=== PATIENT | female | born 1995 | race Caucasian/White ===

== ENCOUNTER → 2024-03-09 10:08 | Outpatient (REF) | payer OTHER, SELFPAY | LOC: PNTC 10:08 | PROVIDERS: ATTENDING PHYSICIAN Student in an Organized Health Care Education/Training Program | DX: O99.320 Drug use complicating pregnancy, unspecified trimester (principal) | CPT/HCPCS: 76805 ==

== ENCOUNTER → 2024-04-05 09:14 | Outpatient (REF) | payer OTHER, SELFPAY | LOC: PNTC 09:14 | PROVIDERS: ATTENDING PHYSICIAN Student in an Organized Health Care Education/Training Program | DX: O99.320 Drug use complicating pregnancy, unspecified trimester (principal) | CPT/HCPCS: 76811 ==

== ENCOUNTER → 2024-05-03 11:54 | Outpatient (REF) | payer OTHER, SELFPAY | LOC: PNTC 11:54 | PROVIDERS: ATTENDING PHYSICIAN Student in an Organized Health Care Education/Training Program | DX: O35.5XX0 Maternal care for (suspected) damage to fetus by drugs, not applicable or unspecified (principal) | CPT/HCPCS: 76816 ==

== ENCOUNTER → 2024-05-31 10:38 | Outpatient (REF) | payer OTHER, SELFPAY | LOC: PNTC 10:38 | PROVIDERS: ATTENDING PHYSICIAN Student in an Organized Health Care Education/Training Program | DX: O99.320 Drug use complicating pregnancy, unspecified trimester (principal) | CPT/HCPCS: 76816 ==

== ENCOUNTER → 2024-06-28 10:36 | Outpatient (REF) | payer OTHER, SELFPAY | LOC: PNTC 10:36 | PROVIDERS: ATTENDING PHYSICIAN Student in an Organized Health Care Education/Training Program | DX: O99.320 Drug use complicating pregnancy, unspecified trimester (principal) | CPT/HCPCS: 76816 ==

== ENCOUNTER → 2024-07-26 10:50 | Outpatient (REF) | payer OTHER, SELFPAY | LOC: PNTC 10:50 | PROVIDERS: ATTENDING PHYSICIAN Student in an Organized Health Care Education/Training Program | DX: O99.320 Drug use complicating pregnancy, unspecified trimester (principal) | CPT/HCPCS: 76816 ==

== ENCOUNTER 2024-08-24 11:48 | Inpatient (IN) | payer OTHER, SELFPAY ==
[2024-08-24 11:58] VITALS: BP 141/74; BMI 35.4
[2024-08-24 13:40] LABS: % Basophils 0.3 % (0-2); % Eosinophils 0.5 % (0-6); % Monocytes 6.1 % (1.7-9.3); % Neutrophils 76.1 % (42.2-75.2); Absolute Eosinophils 0.1 10^3/uL (0-0.7); Absolute Immature Granulocytes 0.1 10^3/uL (0-0.05); Absolute Lymphocytes 1.7 10^3/uL (1.2-3.4); Absolute Monocytes 0.7 10^3/uL (0.1-0.6); Absolute Neutrophils 8.2 10^3/uL (1.4-6.5); Hematocrit 35.4 % (37.0-47.0); Mean Corp Hgb Conc. 33.9 g/dL (33.0-37.0); Mean Corpuscular Hgb 30.4 pg (27.0-31.0); Mean Corpuscular Volume 89.6 fL (81.0-99.0); Mean Platelet Volume 10.5 fL (7.4-10.4); Nucleated Red Blood Cells % 0 %; Platelet Count 219 10^3/uL (130-400); Red Blood Cell Count 3.95 10^6/uL (4.20-5.40); Red Cell Dist. Width 13.9 % (11.5-14.5); White Blood Cell Count 10.8 10^3/uL (4.8-10.8)
[2024-08-24 13:49] LABS: Amphetamines Negative (Negative); Barbiturates Negative (Negative); Benzodiazepines Negative (Negative); Buprenorphine Negative (Negative); Cocaine Negative (Negative); Marijuana Negative (Negative); Methadone Positive (Negative); Methamphetamines Negative (Negative); Opiates Negative (Negative); Phencyclidine Negative (Negative); Tricyclic Antidepressants Negative (Negative)
[2024-08-24 14:08] LABS: Fentanyl, Urine Negative (Negative)
[2024-08-24] MEDS: PITOCIN 30 UNITS/NSS 500 ML IV (15:59)
--- NOTE | 2024-08-24 16:22 | W.CON.NOWS ---
Consultation
-
Date/Time Consultation Requested: 08/24/2024 at 1500
Date/Time Consultation Performed: 08/24/2024 at 1500
Requesting Provider: Dr. Fregoso
Performing Provider: Dr. Juárez
Reason for Consultation: Maternal methadone maintenance
NOWS Consult
History
/Para:
Gestational Age at : 40+ weeks
Current Medication: Methadone
Past Medication History: Other (fentanyl)
Social Service Status: [employer]
Maternal Labs
Blood Type: O Positive
Antibody Screen: Negative
Hep B S Ag: Positive
HIV: Nonreactive
RPR: Nonreactive
Rubella: Immune
Group B Strep: Negative
Chlamydia/GC: Negative
Hep C: Positive (Ab, negative viral load)
Consult
Topics Discussed:
- Variation in presentation for NOWS and not dependent on the amount of medication
- Expected duration of observation, if asymptomatic is 5 days
- Expect the baby to have symptoms, but not all symptoms need medication
- Non-pharmacologic measures to manage the symptoms include , skin to skin contact as much as possible, a dark quiet room etc.
- Care while on floor, observation
- Eat/sleep/console protocol, how it works, expectation from parents, what to expect from medical staff
- Rescue doses of Morphine/how many/how often before starting on regular every 2-4 hr dosing
- Social Service consult
Maternal Understanding:
1. Verbalizes understanding of NOWS
2. Verbalizes expectations from patient, she is aware that she will likely be medically ready for discharge prior to the 5 day monitoring period and is planning to stay to nest with the baby.
3. Verbalizes expectations from staff
4. Verbalizes the understanding of eat/sleep/console management and everyone's role
Questions from parents: Mom did not plan on , plans to bottle feed formula but is potentially open to trying as we discussed the passage of maternal methadone through breastmilk that may help with withdrawal.
08/24/2024 Maternal UDS: Positive only for methadone.
Face to Face Time
Total Zusg-as-Ugye Time (in Minutes): 30
[2024-08-24] MEDS: METHADONE 100 MG/10 ML 180 MG PO (18:11)
[2024-08-24] MEDS: TUMS CHEWABLE TABLET 400 MG PO (19:09)
[2024-08-24] MEDS: VALTREX 500 MG PO (20:04)
[2024-08-24] MEDS: LR 1000 IV (20:06)
[2024-08-25] MEDS: LR 1000 IV ×3 (01:03→07:18)
[2024-08-25] MEDS: TUMS CHEWABLE TABLET 400 MG PO ×3 (02:08→20:46)
[2024-08-25] MEDS: STADOL 1 MG IV (02:18)
[2024-08-25] MEDS: SUBLIMAZE 100 MCG EPIDURAL (03:14)
[2024-08-25] MEDS: FENTANYL/BUPIVACAINE 100 EPIDURAL ×2 (03:14→09:51)
[2024-08-25] MEDS: METHADONE 100 MG/10 ML 195 MG PO (08:08)
[2024-08-25] MEDS: VALTREX 500 MG PO (08:08)
[2024-08-25 10:40] LABS: Cord ABG Comment CORD BLOOD
[2024-08-25 10:46] LABS: B.E. Cord ABG -6.4 mMOL/L; HCO3 Cord ABG 22.9 mmol/L; O2 Saturation % Cord ABG 25.3 %; PCO2 Cord ABG 60 mmHg; PO2 Cord ABG 20 mmHg; pH Cord ABG 7.19
[2024-08-25 10:50] LABS: B.E. Cord ABG -6.1 mMOL/L; HCO3 Cord ABG 21.1 mmol/L; O2 Saturation % Cord ABG 33.8 %; PCO2 Cord ABG 47 mmHg; PO2 Cord ABG 19 mmHg; pH Cord ABG 7.26
[2024-08-25] MEDS: METHADONE 100 MG/10 ML 180 MG PO (17:55)
[2024-08-25] MEDS: TYLENOL 650 MG PO (20:46)
[2024-08-25] MEDS: MOTRIN 600 MG PO (20:46)
[2024-08-26 04:58] LABS: Hematocrit 28.9 % (37.0-47.0); Hemoglobin 9.8 g/dL (12.0-16.0)
[2024-08-26] MEDS: PRENATAL PLUS 1 TABLET PO (08:21)
[2024-08-26] MEDS: METHADONE 100 MG/10 ML 195 MG PO (08:21)
[2024-08-26] MEDS: PEPCID 20 MG PO (08:21)
[2024-08-26] MEDS: VALTREX 500 MG PO (08:22)
[2024-08-26] MEDS: SENOKOT-S 1 TABLET PO (08:22)
[2024-08-26] MEDS: FEOSOL 325 MG PO (08:22)
[2024-08-26] MEDS: MOTRIN 600 MG PO ×2 (08:49→16:17)
--- NOTE | 2024-08-26 13:40 | CM ---
Addendum entered by Daria Vazquez 08/26/24 15:12:
Received massage from Arthur Gutiérrez from [facility] - [phone]
Docket Specialist assigned to case - plans to contact parents. Will update CM
Original Note:
Met with new parents Lulu and Ed Lester at bedside
Parents acknowledge listed address and phone numbers in chart
Mom has named her Katey Lester
Mom reports FOB Ed is supportive - has support from paternal family as well
Mom plans to breast and bottle feed infant - given information for breast pump
Parents report they have all supplies for their infant including car seat, crib, and supplies
Peds for infant will be [facility] [place]
[facility]
Mom reports she was in the WIC program - encouraged to call and update regarding infants
Given information for the [facility]
Mom with + tox screen for methadone; meconium pending
Mom acknowledged she has a past history of heroin abuse. Currently receiving methadone through [facility] in [place]
Her therapist at [facility] is Saba. Mom acknowledged she had been 'clean' for 10 years and had a relapse prior to becoming
Ed GILMORE acknowledged he also has past history with drugs and also is in treatment
Parents aware report will be made to [facility] and [facility] will be following
Call placed to [facility]
Spoke with Yi # [phone]
Report made. Report to be forwarded to [facility]
Plan - infant discharge to be determined by [facility] pending evaluation
[2024-08-26] MEDS: METHADONE 100 MG/10 ML 180 MG PO (17:58)
[2024-08-27] MEDS: MOTRIN 600 MG PO (04:03)
[2024-08-27] MEDS: PRENATAL PLUS 1 TABLET PO (08:29)
[2024-08-27] MEDS: SENOKOT-S 1 TABLET PO (08:30)
[2024-08-27] MEDS: VALTREX 500 MG PO (08:30)
[2024-08-27] MEDS: PEPCID 20 MG PO (08:30)
[2024-08-27] MEDS: FEOSOL 325 MG PO (08:30)
[2024-08-27] MEDS: METHADONE 100 MG/10 ML 195 MG PO (08:30)
[2024-08-27 11:14] LABS: Syphilis/T. pallidum Ab Reflex Negative (Negative)
== END 2024-08-27 09:26 | disposition home or self-care (01) | DRG 806 ==
LOC: LDRP 11:48
PROVIDERS: Obstetrics & Gynecology; ADMITTING PHYSICIAN Obstetrics & Gynecology; ATTENDING PHYSICIAN Student in an Organized Health Care Education/Training Program; PRIMARYCARE PHYSICIAN Family Medicine
PROC: 3E033VJ Introduction of Other Hormone into Peripheral Vein, Percutaneous Approach (ICD-10-PCS; 2024-08-24)
PROC: 10E0XZZ Delivery of Products of Conception, External Approach (ICD-10-PCS; 2024-08-25)
PROC: 0KQM0ZZ Repair Perineum Muscle, Open Approach (ICD-10-PCS; 2024-08-25)
PROC: 10H07YZ Insertion of Other Device into Products of Conception, Via Natural or Artificial Opening (ICD-10-PCS; 2024-08-25)
DX: O48.0 Post-term pregnancy (principal); O41.03X0 Oligohydramnios, third trimester, not applicable or unspecified; Z37.0 Single live birth; Z3A.40 40 weeks gestation of pregnancy; O76 Abnormality in fetal heart rate and rhythm complicating labor and delivery; O70.1 Second degree perineal laceration during delivery; O99.892 Other specified diseases and conditions complicating childbirth; Z79.899 Other long term (current) drug therapy
CPT/HCPCS: 88307; 36415; 76816; 76820; 80306; 80307; 82803; 85014; 85018; 85025; 86780; 86850; 86900; 86901; 99406